=== PATIENT | female | born 1990 | race Caucasian/White ===

== ENCOUNTER 2016-09-17 20:08 | Emergency (ER) | payer MEDICARE ==
[~2016-09-17] VITALS: Ht 165.1 cm; Wt 113.4 kg
[2016-09-17 20:15] VITALS: BP 146/73; PULSE 98; RESP 18; TEMP 98.1; O2SAT 95
--- NOTE | 2016-09-17 21:30 | NUR ---
YESICA Pepper in hallway examining patient
--- NOTE | 2016-09-17 21:30 | NUR ---
Patient to [facility] for evaluation. Side rails up. Report given to HALIE LOMAX.
--- NOTE | 2016-09-17 21:31 | NUR ---
Pt brought in by friend in stable condition. Pt c/o cough and chest wall pain x3 days. Pt stated that she has been sick w/ a cough x1 month. -sob. Pt present w/ a productive cough. Pt denies taking any pain meds. No acute distress noted at this time, will continue to monitor
[2016-09-17] MEDS ORDERED: AMOXICILLIN/CLAVULANATE POTASSIUM 875 MG TABLET PO ONE (21:45)
[2016-09-17 22:08] VITALS: BP 146/73; PULSE 98; RESP 18; TEMP 98.1; O2SAT 95
--- NOTE | 2016-09-17 22:08 | NUR ---
Patient given written and verbal discharge instructions and verbalizes understanding. ER CELL MANAGER YESICA Pepper discussed with patient the results and treatment provided. Patient in stable condition. ID arm band removed. Rx of Tessalon Perles, Motrin 800, Augmentin, and Albuterol given. Patient educated on pain management and to follow up with PMD. Pain Scale 2/10. Opportunity for questions provided and answered.
== END 2016-09-17 22:08 | disposition home or self-care (01) ==
LOC: SED 20:08
DX: J01.90 Acute sinusitis, unspecified (principal); F17.200 Nicotine dependence, unspecified, uncomplicated; F12.10 Cannabis abuse, uncomplicated; Z88.5 Allergy status to narcotic agent; Z88.6 Allergy status to analgesic agent
CPT/HCPCS: 93005; 99283

== ENCOUNTER 2019-03-30 14:08 | Emergency (ER) | payer MEDICAID ==
[~2019-03-30] VITALS: Ht 165.1 cm; Wt 136.1 kg
[2019-03-30 14:10] VITALS: BP_SYST 136
[2019-03-30] MEDS ORDERED: KETOROLAC TROMETHAMINE 60 MG/2 ML VIAL IM ONE (15:30)
[2019-03-30] MEDS ORDERED: DEXAMETHASONE SOD PHOSPHATE 10 MG/ML VIAL IM ONE (15:30)
[2019-03-30 16:36] VITALS: BP_SYST 128
== END 2019-03-30 16:42 | disposition home or self-care (01) ==
LOC: SED 14:08
DX: J02.9 Acute pharyngitis, unspecified (principal); Z88.6 Allergy status to analgesic agent; Z88.5 Allergy status to narcotic agent
CPT/HCPCS: 36415; 71045; 81025; 86403; 87081; 96372; 99284; J1100; J1885